=== PATIENT | male | born 1990 | race Caucasian/White ===

== ENCOUNTER 2019-09-14 11:53 | Emergency (ER) | payer BC, SELFPAY ==
--- NOTE | 2019-09-14 12:02 | ED.FEVER ---
HPI - Fever General Chief Complaint: Fever Stated Complaint: Fever Time Seen by Provider: 09/14/19 12:02 Source: patient and RN notes reviewed History of Present Illness HPI Narrative: Patient is a 29-year-old male that presents to urgent care with complaints of fever, body aches, congestion since Thursday. Patient states he has been using Vicks and Tylenol for his symptoms. No other acute complaints. Patient states he has felt better in the last 24 hours. No acute distress noted. Patient read the plan of care. Related Data Home Medications Medication Instructions Recorded Confirmed No Home Medications 09/14/19 09/14/19 Allergies Allergy/AdvReac Type Severity Reaction Status Date / Time codeine Allergy Unknown unknown Verified 05/10/19 09:34 Review of Systems Review of Systems: Narrative: CONSTITUTIONAL: reports a fever EYES: Denies visual changes, redness, or discharge. ENT: Reports of sinus congestion CARDIOVASCULAR: Denies chest pain, palpitations, or edema. RESPIRATORY: Denies cough or dyspnea. GASTROINTESTINAL: Denies abdominal pain, nausea, vomiting, or diarrhea. GENITOURINARY: Denies dysuria or hematuria. SKIN: Denies rash or itching. MUSCULOSKELETAL: Denies back pain, joint pain; reports of body aches NEUROLOGIC: Denies headache, numbness, or weakness. PMFSH Comments At the time of my signature, I reviewed and agree with the nursing past medical, surgical, social, and family history. There is no relevant family history pertinent to the patient complaint. Exam Narrative: Exam Narrative: GENERAL: This is a well-nourished, well-developed patient, in no apparent distress. HEAD: normocephalic, atraumatic. EYES: PERRL. Sclera clear/white. Vision is grossly intact. EARS: External ears normal, auditory canals clear and without drainage, TMs normal without perforation. Hearing grossly intact. NOSE: External nose normal with no obvious nasal discharge, nares without redness, clear rhinorrhea. THROAT: Mucous membranes moist, posterior pharynx clear. Mild postnasal drainage NECK: Neck supple CARDIOVASCULAR: Regular rate and rhythm without murmurs, gallops, or rubs. RESPIRATORY: Clear to auscultation. Breath sounds equal bilaterally. No wheezes, rales, or rhonchi. SKIN: warm, intact with no suspicious lesions or rash, good texture and turgor. NEURO: awake, alert, and oriented to person, place and time. There were no obvious focal neurologic abnormalities. EXTREMITIES: No clubbing, cyanosis, or edema. Course Vital Signs Vital signs: Vital Signs Temperature 100.2 F H 09/14/19 12:10 Pulse Rate 98 09/14/19 12:10 Respiratory Rate 16 09/14/19 12:10 Blood Pressure 110/74 09/14/19 12:10 Pulse Oximetry 99 09/14/19 12:10 Temperature 100.2 F H 09/14/19 12:10 Pulse Rate 98 09/14/19 12:10 Respiratory Rate 16 09/14/19 12:10 Blood Pressure 110/74 09/14/19 12:10 Pulse Oximetry 99 09/14/19 12:10 Reviewed MDM - Fever MDM Narrative Medical decision making narrative: Reviewed lab results with the patient. He is aware that he is influenza B positive. Advised the patient to use Tylenol/ibuprofen as needed for body aches and fever. Increase water intake and rest. Use humidifier at night. May use epdu-dns-[id number] medications for symptom relief such as Claritin and Flonase for postnasal drainage and congestion. Robitussin and Delsym for cough. Follow-up with PCP within 2 to 5 days or for worsening symptoms or failure to improve. Differential Diagnosis Differential diagnosis: Likely pyelonephritis, viral infection and influenza Lab Data Attestation: I reviewed the patient's lab results. Labs: Influenza A Screen Negative Reference Range: Negative Influenza B Screen Positive Reference Range: Negative Critical Care Time Critical Care Time Critical Care Time: No Discharge Plan Discharge Clinical Impression: Influenza Patient Dispositio
[2019-09-14 12:10] VITALS: BP 110/74; PULSE 98; RESP 16; TEMP 37.9; O2SAT 99
== END 2019-09-14 12:37 | disposition home or self-care (01) ==
PROVIDERS: Emergency Provider Nurse Practitioner Family
DX: J10.1 Influenza due to other identified influenza virus with other respiratory manifestations (principal)
CPT/HCPCS: 87804; 99212; G0463

== ENCOUNTER 2019-10-31 18:37 | Emergency (ER) | payer BC, SELFPAY ==
[2019-10-31 18:49] VITALS: BP 129/82; PULSE 92; RESP 16; TEMP 36.7; O2SAT 99
--- NOTE | 2019-10-31 19:00 | ED.NAVMDI ---
HPI - Nausea/Vomiting/Diarrhea General Chief complaint: Nausea/Vomiting/Diarrhea Stated complaint: pos food poisoning Time Seen by Provider: 10/31/19 18:52 Source: patient and RN notes reviewed Mode of arrival: ambulatory Limitations: no limitations History of Present Illness HPI Narrative: Patient presents today complaining of abdominal cramping and diarrhea that started this morning. Symptoms ended around 1330 this afternoon. Patient had to leave work today due to his symptoms and presents requesting a note to return to work tomorrow. Denies fever, nausea, vomiting, any further abdominal pain. He has not been taking any fcup-rkv-lgbykgb medication for symptoms prior to arrival. MD elicited complaint: diarrhea Related Data Home Medications Medication Instructions Recorded Confirmed No Home Medications 09/14/19 09/14/19 Allergies Allergy/AdvReac Type Severity Reaction Status Date / Time codeine Allergy Severe Swelling Verified 10/31/19 18:52 of Lip/Tongue/Throat Review of Systems Review of Systems: Narrative: CONSTITUTIONAL: Denies body aches, fever, chills, or sweats. EYES: Denies visual changes, redness, or discharge. ENT: Denies rhinorrhea, congestion, sore throat, or otalgia. CARDIOVASCULAR: Denies chest pain, palpitations, or edema. RESPIRATORY: Denies cough or dyspnea. GASTROINTESTINAL: Denies abdominal pain, nausea, vomiting. + Diarrhea GENITOURINARY: Denies dysuria or hematuria. SKIN: Denies rash, itching, or wounds. MUSCULOSKELETAL: Denies back pain, joint pain, or myalgia. NEUROLOGIC: Denies headache, numbness, tingling, or weakness. PSYCH: Denies depression or anxiety. PMFSH Comments At time of signature, I have reviewed and agree with nursing past medical, surgical, social and family history unless otherwise noted. Please see nursing chart for further information. There is no relevant family history pertinent to the presenting complaint Exam Narrative: Exam Narrative: GENERAL: Well-appearing, well-nourished, and in no acute distress. HEAD: Normocephalic, atraumatic. EYES: EOMI. No redness or drainage. Conjunctivae normal. ENT: Mucous membranes pink and moist. Nares clear. NECK: Normal AROM. Supple. No lymphadenopathy. CHEST: No respiratory distress. Clear to auscultation. HEART: Regular rate and rhythm. No murmur appreciated. Normal peripheral pulses. ABDOMEN: Soft, nontender, nondistended, normal active bowel sounds. MUSCULOSKELETAL: No bony tenderness. EXTREMITIES: Normal range of motion. No edema. SKIN: Warm, dry, no rash. NEURO: No focal deficits. Alert and oriented x3. Gait steady. PSYCH: Normal affect. No signs of depression or anxiety. Course Vital Signs Vital signs: Vital Signs Temperature 98.1 F 10/31/19 18:49 Pulse Rate 92 10/31/19 18:49 Respiratory Rate 16 10/31/19 18:49 Blood Pressure 129/82 10/31/19 18:49 Pulse Oximetry 99 10/31/19 18:49 Temperature 98.1 F 10/31/19 18:49 Pulse Rate 92 10/31/19 18:49 Respiratory Rate 16 10/31/19 18:49 Blood Pressure 129/82 10/31/19 18:49 Pulse Oximetry 99 10/31/19 18:49 Reviewed. Pt has been instructed to follow up with his PCP regarding his elevated blood pressure today. MDM - Nausea/Vomiting/Diarrhea Differential Diagnosis Differential diagnosis: Likely food poisoning and gastroenteritis Critical Care Time Critical Care Time Critical Care Time: No Discharge Plan Discharge Clinical Impression: Diarrhea Qualifiers: Diarrhea type: unspecified type Qualified Code(s): R19.7 - Diarrhea, unspecified Patient Disposition: Home, Self-Care Condition: Stable Instructions: Acute Diarrhea (ED) Additional Instructions: Stay hydrated. Follow-up with your doctor with any concerns. Your blood pressure was elevated above 120/80 today at Urgent Care. This puts you above the threshold for follow up. Please schedule a followup visit with your personal physician as soon as possible
== END 2019-10-31 19:08 | disposition home or self-care (01) ==
PROVIDERS: Emergency Provider Nurse Practitioner
DX: R19.7 Diarrhea, unspecified (principal)
CPT/HCPCS: 99211; G0463

== ENCOUNTER 2019-11-04 12:09 | Emergency (ER) | payer BC, SELFPAY ==
[2019-11-04 12:12] VITALS: BP 132/82; PULSE 93; RESP 18; TEMP 36.5; O2SAT 100
--- NOTE | 2019-11-04 12:43 | ED.GENADULT ---
HPI - General Adult General Chief complaint: Unspecified Stated complaint: flu like symptoms since thursday Time Seen by Provider: 11/04/19 12:12 Source: patient and family Mode of arrival: ambulatory Limitations: no limitations History of Present Illness HPI narrative: Patient is a 29-year-old male who presents to emergency department for evaluation of upper respiratory symptoms that began over the course of the last several days with congestion rhinorrhea body aches fever chills cough. Patient notes sick contacts at home. Has taken mtyy-iwb-qiuhlsa medications with minimal improvement. Denies vomiting or diarrhea Related Data Allergies Allergy/AdvReac Type Severity Reaction Status Date / Time codeine Allergy Severe Swelling Verified 10/31/19 18:52 of Lip/Tongue/Throat Review of Systems Review of Systems: All systems reviewed & are unremarkable except as noted in HPI and below PMFSH Social History Social History (Updated 11/04/19 @ 12:45 by Jakub Alegria PA-C) Smoking status: Current every day smoker Gender identity (if verbalized by the patient): Male Exam Narrative: Exam Narrative: GENERAL: Well-appearing, well-nourished, and in no acute distress. HEAD: Normocephalic, atraumatic. EYES: PERRLA and EOMI. ENT: Nares clear, no rhinorrhea or epistaxis. Mucous membranes moist. CHEST: Clear to auscultation. No respiratory distress. No wheezes rales or rhonchi HEART: Regular rate and rhythm. No murmur heard. EXTREMITIES: Normal range of motion. No edema. SKIN: Warm, dry, no rash. NEURO: No focal deficits. Alert and oriented x3. PSYCH: Normal mood and affect. Course Course Emergency Course: Patient aware of case findings treatment plan and diagnosis agreeing to follow-up as directed or to return if symptoms worsen or concerns Vital Signs Vital signs: Vital Signs Temperature 97.7 F 11/04/19 12:12 Pulse Rate 93 11/04/19 12:12 Respiratory Rate 18 11/04/19 12:12 Blood Pressure 132/82 11/04/19 12:12 Pulse Oximetry 100 11/04/19 12:12 Temperature 97.7 F 11/04/19 12:12 Pulse Rate 93 11/04/19 12:12 Respiratory Rate 18 11/04/19 12:12 Blood Pressure 132/82 11/04/19 12:12 Pulse Oximetry 100 11/04/19 12:12 Medical Decision Making MDM Narrative Medical decision making narrative: Patient with influenza in the room in no distress aware of case findings treatment plan and diagnosis provided with reasons to return Vital Signs Vital Signs: Vital Signs Temperature 97.7 F 11/04/19 12:12 Pulse Rate 93 11/04/19 12:12 Respiratory Rate 18 11/04/19 12:12 Blood Pressure 132/82 11/04/19 12:12 Pulse Oximetry 100 11/04/19 12:12 Temperature 97.7 F 11/04/19 12:12 Pulse Rate 93 11/04/19 12:12 Respiratory Rate 18 11/04/19 12:12 Blood Pressure 132/82 11/04/19 12:12 Pulse Oximetry 100 11/04/19 12:12 Lab Data Labs: Influenza A Screen Negative Reference Range: Negative Influenza B Screen Negative Reference Range: Negative Discharge Plan Discharge Clinical Impression: Influenza Patient Disposition: Home, Self-Care Condition: Stable Instructions: Antibiotic Form, Influenza (DC) Additional Instructions: Follow up with your primary care doctor in 5-7 days for re-evaluation. Go to ER for worsening pain, vision changes, nausea/vomiting, fever/chills, weakness, chest pain, shortness of breath, numbness/tingling, slurred speech, difficulty walking, change in mental status etc. or any other concerns. Stay well-hydrated Take any prescribed medications as directed. Prescriptions: New ibuprofen [IBU] 600 mg tablet 600 mg PO QID PRN (Reason: fever or pain) Qty: 7 RF: 0 Follow-up/Referrals: PHYSICIAN,CONTRACT PROGRAMMER [Primary Care Provider] - Jared Ramos MD [Physician] - Stand Alone Forms: Work/School Release IP
== END 2019-11-04 13:01 | disposition home or self-care (01) ==
PROVIDERS: Emergency Provider Emergency Medicine
DX: J11.1 Influenza due to unidentified influenza virus with other respiratory manifestations (principal); F17.200 Nicotine dependence, unspecified, uncomplicated
CPT/HCPCS: 87804; 99283

== ENCOUNTER 2020-02-27 16:16 | Emergency (ER) | payer BC, SELFPAY ==
[2020-02-27 16:40] VITALS: BP 129/82; PULSE 89; RESP 16; O2SAT 99
--- NOTE | 2020-02-27 17:11 | ED.ABDPAIN ---
HPI - Abdominal Pain General Chief Complaint: Abdominal Pain Stated Complaint: acid reflux Time Seen by Provider: 02/27/20 17:05 Source: patient and RN notes reviewed Mode of arrival: ambulatory Limitations: no limitations History of Present Illness HPI narrative: Patient presents today complaining of acid reflux symptoms. States he woke up this morning and vomited several times due to increased acid. He had to call into work today due to his symptoms. Last episode of vomiting was 0640 this morning. Patient states he has been worked up by his doctor for reflux and possible irritable bowel syndrome. Denies any abdominal pain, current nausea, or any additional symptoms. He is requesting a note for work today. He currently takes Prilosec every morning for his symptoms. Reports it did help after his morning dose. MD elicited complaint: other (Acid reflux) Related Data Home Medications Medication Instructions Recorded Confirmed No Home Medications 02/27/20 02/27/20 Allergies Allergy/AdvReac Type Severity Reaction Status Date / Time codeine Allergy Severe Swelling Verified 02/27/20 16:33 of Lip/Tongue/Throat Review of Systems Review of Systems: Narrative: CONSTITUTIONAL: Denies body aches, fever, chills, or sweats. EYES: Denies visual changes, redness, or discharge. ENT: Denies rhinorrhea, congestion, sore throat, or otalgia. CARDIOVASCULAR: Denies chest pain, palpitations, or edema. RESPIRATORY: Denies cough or dyspnea. GASTROINTESTINAL: Denies abdominal pain, or diarrhea.+nausea and vomiting-resolved GENITOURINARY: Denies dysuria or hematuria. SKIN: Denies rash, itching, or wounds. MUSCULOSKELETAL: Denies back pain, joint pain, or myalgia. NEUROLOGIC: Denies headache, numbness, tingling, or weakness. PSYCH: Denies depression or anxiety. [facility] Past Medical History Medical History (Updated 02/27/20 @ 17:14 by Leonela Norris, CANTEEN MANAGER, ) GERD (gastroesophageal reflux disease) Social History Social History (Updated 11/04/19 @ 12:45 by Jakub Alegria PA-C) Smoking status: Current every day smoker Gender identity (if verbalized by the patient): Male Comments At time of signature, I have reviewed and agree with nursing past medical, surgical, social and family history unless otherwise noted. Please see nursing chart for further information. There is no relevant family history pertinent to the presenting complaint Exam Narrative: Exam Narrative: GENERAL: Well-appearing, well-nourished, and in no acute distress. HEAD: Normocephalic, atraumatic. EYES: EOMI. No redness or drainage. Conjunctivae normal. ENT: Mucous membranes pink and moist. NECK: Normal AROM. CHEST: No respiratory distress. Clear to auscultation. HEART: Regular rate and rhythm. No murmur appreciated. Normal peripheral pulses. ABDOMEN: Soft, nontender, nondistended, normal active bowel sounds. EXTREMITIES: Normal range of motion. No edema. SKIN: Warm, dry, no rash. Capillary refill normal. Normal skin turgor. NEURO: No focal deficits. Alert and oriented x3. Gait steady. PSYCH: Normal affect. No signs of depression or anxiety. Course Vital Signs Vital signs: Vital Signs Pulse Rate 89 02/27/20 16:40 Respiratory Rate 16 02/27/20 16:40 Blood Pressure 129/82 02/27/20 16:40 Pulse Oximetry 99 02/27/20 16:40 Pulse Rate 89 02/27/20 16:40 Respiratory Rate 16 02/27/20 16:40 Blood Pressure 129/82 02/27/20 16:40 Pulse Oximetry 99 02/27/20 16:40 Reviewed. Pt has been instructed to follow up with his PCP regarding his elevated blood pressure today. MDM - Abdominal Pain Differential Diagnosis Differential diagnosis: Likely other (GERD, esophagitis, gastritis, IBS, viral illness) Critical Care Time Critical Care Time Critical Care Time: No Discharge Plan Discharge Clinical Impression: GERD (gastroesophageal reflux disease) Qualifiers: Esophagitis presence: esophagitis presence not spec
== END 2020-02-27 17:19 | disposition home or self-care (01) ==
PROVIDERS: Emergency Provider Nurse Practitioner; PCP Internal Medicine
DX: K21.9 Gastro-esophageal reflux disease without esophagitis (principal); F17.200 Nicotine dependence, unspecified, uncomplicated
CPT/HCPCS: 99211; G0463

== ENCOUNTER 2020-10-18 12:07 | Emergency (ER) | payer BC, SELFPAY ==
--- NOTE | 2020-10-18 12:17 | ED.GENADULT ---
HPI - General Adult General Chief complaint: Upper Respiratory Infection Stated complaint: fatigue Time Seen by Provider: 10/18/20 12:38 Source: patient and RN notes reviewed Mode of arrival: ambulatory Limitations: no limitations History of Present Illness HPI narrative: 20-year-old male presents with concern for fatigue, body aches, chills, occasional cough, one episode of nausea and vomiting, low-grade fever. Reports symptoms started Thursday. He denies any abdominal pain, headache, diarrhea, nasal congestion, sore throat, ear pain, shortness of breath, loss of sense of taste and smell. complaint: Body aches Related Data Home Medications Medication Instructions Recorded Confirmed No Home Medications 02/27/20 02/27/20 Allergies Allergy/AdvReac Type Severity Reaction Status Date / Time codeine Allergy Severe Swelling Verified 10/18/20 12:35 of Lip/Tongue/Throat Review of Systems Review of Systems: Narrative: CONSTITUTIONAL: Reports malaise, chills, sweats, fatigue, low-grade fever. EYES: Denies visual changes, redness, or discharge. ENT: Reports rhinorrhea. Denies congestion, sinus pain, otalgia and sore throat. CARDIOVASCULAR: Denies chest pain, palpitations, or edema. RESPIRATORY: Reports occasional dry cough. Denies dyspnea. GASTROINTESTINAL: Denies abdominal pain, nausea, vomiting, diarrhea SKIN: Denies rash or itching. MUSCULOSKELETAL: Reports myalgia. NEUROLOGIC: Denies headache. All systems reviewed & are unremarkable except as noted in HPI and below PMFSH Past Medical History Medical History (Updated 10/18/20 @ 12:50 by Miriam Alfaro NP) GERD (gastroesophageal reflux disease) Social History Social History (Updated 11/04/19 @ 12:45 by Jakub Alegria PA-C) Smoking status: Current every day smoker Gender identity (if verbalized by the patient): Male Comments At time of signature, agree with nursing past medical, surgical, social and family history. There is no relevant family history pertinent to the presenting complaint Exam Narrative: Exam Narrative: GENERAL: Well-appearing, well-nourished, and in no acute distress. HEAD: Normocephalic EYES: PERRLA, conjunctivae clear ENT: Nares clear, turbinates erythematous, clear discharge. Mucous membranes moist. TM pearly castaneda with sharp light reflex bilaterally; no tragal tenderness. Oropharynx not erythematous without lesions. Tonsils not enlarged and without exudate, no drooling, no hoarseness, no trismus, uvula midline. NECK: Supple. No lymphadenopathy CHEST: Clear to auscultation, breath sounds equal. No wheezing, rhonchi, rales, or stridor. No respiratory distress, speaks in full sentences. HEART: Regular rate and rhythm. No murmur heard. SKIN: Warm, dry, no rash. NEURO: Alert and oriented x3. PSYCH: Normal mood and affect Course Course Emergency Course: Patient is aware of diagnosis, understands and agrees to treatment plan. Anticipatory guidance given. Patient agrees to follow-up as directed and is aware of reasons to seek care at the emergency department. Portions of this record may have been created with voice recognition software Vital Signs Vital signs: Vital Signs Temperature 97.1 F L 10/18/20 12:28 Pulse Rate 83 10/18/20 12:28 Respiratory Rate 16 10/18/20 12:28 Blood Pressure 128/85 10/18/20 12:28 Pulse Oximetry 99 10/18/20 12:28 Temperature 97.1 F L 10/18/20 12:28 Pulse Rate 83 10/18/20 12:28 Respiratory Rate 16 10/18/20 12:28 Blood Pressure 128/85 10/18/20 12:28 Pulse Oximetry 99 10/18/20 12:28 Reviewed. Medical Decision Making MDM Narrative Medical decision making narrative: Differential diagnosis considered: Varela virus, strep pharyngitis, allergic rhinitis, upper respiratory tract infection, sinusitis, rhinosinusitis, nasopharyngitis. viral pharyngitis, otitis media, otitis externa, pneumonia, bronchitis, viral cough syndrome, viral syndrome, and influenza. Exam findings
[2020-10-18 12:28] VITALS: BP 128/85; PULSE 83; RESP 16; TEMP 36.2; O2SAT 99
--- NOTE | 2020-10-18 13:05 | PC.NURSE ---
All called 10/18/20 at 1252. Pt placed radiographer cardiac catheterization log and call list in computer.
[2020-10-19 13:21] LABS: SARS-CoV-2 RNA PCR Negative
== END 2020-10-18 12:59 | disposition home or self-care (01) ==
PROVIDERS: Emergency Provider Nurse Practitioner
DX: B34.9 Viral infection, unspecified (principal); Z20.822 Contact with and (suspected) exposure to COVID-19; K21.9 Gastro-esophageal reflux disease without esophagitis
CPT/HCPCS: 87426; 87804; 99213; C9803; G0463; U0003; U0005

== ENCOUNTER 2021-07-24 15:06 | Emergency (ER) | payer OTHER, SELFPAY ==
[2021-07-24 15:17] VITALS: BP 125/69; PULSE 89; RESP 16; TEMP 37.2; O2SAT 99
--- NOTE | 2021-07-24 15:48 | ED.URI ---
HPI - URI/Sore Throat General Chief Complaint: Upper Respiratory Infection Stated Complaint: cough/congestion Source: patient and RN notes reviewed Mode of arrival: ambulatory History of Present Illness HPI Narrative: This is a 31-year-old male who presented to urgent care with complaints of runny nose, fever, congestion, body ache, cough with greenish sputum. Patient notes that his 2 sons are both diagnosed with 2 strands of close that is the only sick contact he has had. He also notes that his fever has been approximately 101. He took [id number]-fuf-[id number] cold medication to relieve his symptoms. He recently was checked for Covid which was negative on Thursday. The patient denies SOB, CP, palpitation, extremity numbness, lightheadedness, dizziness, or constipation.. MD elicited complaint: fever, rhinorrhea and nasal congestion Related Data Allergies Allergy/AdvReac Type Severity Reaction Status Date / Time codeine Allergy Severe Swelling Verified 07/24/21 15:14 of Lip/Tongue/Throat Review of Systems Review of Systems: A 14 organ system Review of Systems was performed and pertinent positives included in the HPI, otherwise remaining ROS is negative. [facility] Past Medical History Medical History (Updated 07/24/21 @ 15:48 by ROBERTA Osborn) GERD (gastroesophageal reflux disease) Family History Family History (Updated 07/24/21 @ 15:50 by ROBERTA Osborn) Other Family history non-contributory Social History Social History (Updated 11/04/19 @ 12:45 by Jakub Alegria PA-C) Smoking status: Current every day smoker Gender identity (if verbalized by the patient): Male Exam Narrative: GENERAL: This is a well-nourished, well-developed patient, in no apparent distress. HEAD: normocephalic, atraumatic. EYES: PERRL. Sclera clear/white. Vision is grossly intact. EARS: External ears normal, auditory canals clear and without drainage, TMs normal without perforation. Hearing grossly intact. NOSE: External nose normal with no obvious nasal discharge, nares without redness, no rhinorrhea. THROAT: Mucous membranes moist, posterior pharynx erythematous. NECK: Neck supple, non-tender without lymphadenopathy, masses or thyromegaly. CARDIOVASCULAR: Regular rate and rhythm without murmurs, gallops, or rubs. RESPIRATORY: Clear to auscultation. Breath sounds equal bilaterally. No wheezes, rales, or rhonchi. GASTROINTESTINAL: Abdomen soft, non-tender, nondistended. Bowel sounds are active. No hepato-splenomegaly, or palpable masses. No guarding. SKIN: warm, intact with no suspicious lesions or rash, good texture and turgor. NEURO: awake, alert, and oriented to person, place and time. There were no obvious focal neurologic abnormalities. Steady gait EXTREMITIES: Normal range of motion. No edema. No calf tenderness. Negative Homans sign bilaterally. BACK: Nontender without deformity or crepitance. No flank tenderness. Course Course Emergency Course: Patient will be treated for symptoms for viral infection Vital Signs Vital signs: Vital Signs Temperature 98.9 F 07/24/21 15:17 Pulse Rate 89 07/24/21 15:17 Respiratory Rate 16 07/24/21 15:17 Blood Pressure 125/69 07/24/21 15:17 Pulse Oximetry 99 07/24/21 15:17 Temperature 98.9 F 07/24/21 15:17 Pulse Rate 89 07/24/21 15:17 Respiratory Rate 16 07/24/21 15:17 Blood Pressure 125/69 07/24/21 15:17 Pulse Oximetry 99 07/24/21 15:17 MDM - URI/Sore Throat Differential Diagnosis Differential diagnosis: Likely upper respiratory infection, viral infection, influenza and pharyngitis Lab Data Labs: Influenza A Screen Negative Reference Range: Negative Influenza B Screen Negative Reference Range: Negative Influenza negative Discharge Plan Discharge Clinical Impression: Viral infection Patient Disposi
== END 2021-07-24 16:05 | disposition home or self-care (01) ==
PROVIDERS: Emergency Provider Nurse Practitioner
DX: B34.9 Viral infection, unspecified (principal); F17.200 Nicotine dependence, unspecified, uncomplicated; K21.9 Gastro-esophageal reflux disease without esophagitis
CPT/HCPCS: 87804; 99213; G0463

== ENCOUNTER 2023-08-25 18:08 | Emergency (ER) | payer OTHER, SELFPAY ==
--- NOTE | 2023-08-25 18:09 | ED.URI ---
HPI - URI/Sore Throat General Chief Complaint: Nausea/Vomiting/Diarrhea Stated Complaint: Chills/Nausea Time Seen by Provider: 08/25/23 18:09 Source: patient Mode of arrival: ambulatory Limitations: no limitations History of Present Illness HPI Narrative: Carlos is a 33-year-old male patient presenting to the clinic today with complaints of chills and nausea. He reports his symptoms started about 3 days ago. Is having nasal congestion, cough is productive at times of green phlegm, fever high as 102.4, body aches, vomiting, and diarrhea. He denies any abdominal pain currently. MD elicited complaint: sore throat and nasal congestion Related Data Allergies Allergy/AdvReac Type Severity Reaction Status Date / Time codeine Allergy Severe Swelling Verified 08/25/23 18:09 of Lip/Tongue/Throat Review of Systems Review of Systems: Pertinent positives per HPI. Patient denies any fever, chills, rash, headache, visual changes, dizziness, cough, shortness of breath, chest pain, palpitations, constipation, abdominal pain, or any urinary issues. [facility] Past Medical History Medical History (Updated 08/25/23 @ 18:35 by Cezar Soares APRN) GERD (gastroesophageal reflux disease) Family History Family History (Updated 07/24/21 @ 15:50 by JONATHAN OsbornP-C) Other Family history non-contributory Social History Social History (Updated 11/04/19 @ 12:45 by Jakub Alegria, PA-C) Smoking status: Current every day smoker Gender identity (if verbalized by the patient): Male Comments At the time of my signature, I reviewed and agree with the nursing past medical, surgical, social, and family history. There is no relevant family history pertinent to the patient complaint. Exam Narrative: General: Well-developed, well nourished, in no apparent distress Head: Normocephalic, atraumatic Eyes: Pupils equally round and reactive to light bilaterally, EOM intact, sclera and conjunctive clear, no discharge, lids normal Ears: TMs intact and clear, ear canals clear, no drainage, grossly hearing normal. Nose: Nares patent, no discharge, no inflammation, no sinus tenderness. Mouth: Oral pharynx without lesions or masses, good dentition, MMM. Neck: Supple, trachea midline, no enlargement of anterior or posterior cervical nodes, no thyroid masses or goiter palpable. Cardio: Regular rate and rhythm, s1 and s2 normal, no murmur appreciated. Resp: Clear to auscultation bilaterally, no rhonchi, rales, wheezing or rubs Course Course Emergency Course: Portions of this record may have been created with voice recognition software. Level of Care: Express Care Visit Vital Signs Vital signs: Vital signs reviewed MDM - URI/Sore Throat MDM Narrative Medical decision making narrative: At the time of visit patient is resting comfortably on the exam table. Patient appears to be nontoxic. COVID and influenza testing was negative. I suspect patient has viral gastroenteritis/viral syndrome. Prescription for Zofran was sent to the pharmacy and work note was given. Supportive measures were discussed with the patient and they voiced understanding discharge instructions and agrees to treatment plan. Return precautions reviewed Differential Diagnosis Differential diagnosis: Likely upper respiratory infection, otitis media, sinusitis, viral infection, bronchitis, influenza, pharyngitis and other (COVID) Discharge Plan Discharge Clinical Impression: Acute viral syndrome, Gastroenteritis Patient Disposition: Home, Self-Care Condition: Stable Instructions: Antibiotic Form, Gastroenteritis (ED), Viral Syndrome (ED) Additional Instructions: COVID and influenza testing was negative. Take prescription medications only as prescribed-Zofran May take Imodium as needed for diarrhea as long as there is no blood in your stool. Increase fluids and stay well hydrated Tylenol/motrin for pain/fever Flonase an
[2023-08-25 18:16] VITALS: BP 147/88; PULSE 80; RESP 16; TEMP 36.7; O2SAT 99
== END 2023-08-25 18:43 | disposition home or self-care (01) ==
PROVIDERS: Emergency Provider Nurse Practitioner Family
DX: B34.9 Viral infection, unspecified (principal); K52.9 Noninfective gastroenteritis and colitis, unspecified; F17.210 Nicotine dependence, cigarettes, uncomplicated; Z20.822 Contact with and (suspected) exposure to COVID-19
CPT/HCPCS: 87426; 87804; 99213; G0463

== ENCOUNTER 2023-09-22 16:48 | Emergency (ER) | payer OTHER, SELFPAY ==
[2023-09-22 17:10] VITALS: BP 112/90; PULSE 82; RESP 16; TEMP 36.8; O2SAT 100
--- NOTE | 2023-09-22 18:26 | ED.GENADULT ---
HPI - General Adult General Chief complaint: Upper Respiratory Infection Stated complaint: dizzy,nausea,sinus drainage Time Seen by Provider: 09/22/23 18:27 Related Data Allergies Allergy/AdvReac Type Severity Reaction Status Date / Time codeine Allergy Severe Swelling Verified 09/22/23 17:04 of Lip/Tongue/Throat PMFSH Past Medical History Medical History (Updated 08/26/23 @ 00:01 by Charmaine Cannon) GERD (gastroesophageal reflux disease) Family History Family History (Updated 07/24/21 @ 15:50 by Fauzia Estrada, ASSOCIATE PROFESSOR OF BIOLOGY-C) Other Family history non-contributory Social History Social History (Updated 11/04/19 @ 12:45 by Jakub Alegria, PA-C) Smoking status: Current every day smoker Gender identity (if verbalized by the patient): Male Course Vital Signs Vital signs: Vital Signs Temperature 98.2 F 09/22/23 17:10 Pulse Rate 82 09/22/23 17:10 Respiratory Rate 16 09/22/23 17:10 Blood Pressure 112/90 09/22/23 17:10 Pulse Oximetry 100 09/22/23 17:10 Oxygen Delivery Room Air 09/22/23 17:10 Temperature 98.2 F 09/22/23 17:10 Pulse Rate 82 09/22/23 17:10 Respiratory Rate 16 09/22/23 17:10 Blood Pressure 112/90 09/22/23 17:10 Pulse Oximetry 100 09/22/23 17:10 Oxygen Delivery Room Air 09/22/23 17:10 Medical Decision Making Vital Signs Vital Signs: Vital Signs Temperature 98.2 F 09/22/23 17:10 Pulse Rate 82 09/22/23 17:10 Respiratory Rate 16 09/22/23 17:10 Blood Pressure 112/90 09/22/23 17:10 Pulse Oximetry 100 09/22/23 17:10 Oxygen Delivery Room Air 09/22/23 17:10 Temperature 98.2 F 09/22/23 17:10 Pulse Rate 82 09/22/23 17:10 Respiratory Rate 16 09/22/23 17:10 Blood Pressure 112/90 09/22/23 17:10 Pulse Oximetry 100 09/22/23 17:10 Oxygen Delivery Room Air 09/22/23 17:10 Discharge Plan Discharge Follow-up/Referrals: PHYSICIAN,MIMEOGRAPHER [Primary Care Provider] -
== END 2023-09-22 18:25 | disposition left against medical advice (07) ==
PROVIDERS: Emergency Provider Internal Medicine Hematology & Oncology
DX: Z53.21 Procedure and treatment not carried out due to patient leaving prior to being seen by health care provider (principal)
CPT/HCPCS: 99199